=== PATIENT | female | born 1975 | race Two or more races ===

== ENCOUNTER 2021-12-13 13:23 | Emergency (ER) | payer MEDICAID ==
[~2021-12-13] VITALS: Ht 165.1 cm; Wt 71.9 kg
[2021-12-13] MEDS ORDERED: MECLIZINE HCL 12.5 MG TABLET. PO ONE (14:00)
[2021-12-13] MEDS ORDERED: IV NORMAL SALINE 1000ML BAG 1,000 ML IV ONE (14:00)
--- NOTE | 2021-12-13 14:22 | PHYS DOC ---
Past Medical History Past Surgical History: Other Additional Past Surgical Histo: abdominoplasty General Adult EDM: Chief Complaint: DIZZY/LIGHT HEADED HPI: HPI: Patient is a 46-year-old female who presents to the emergency department for intermittent lightheadedness and nausea for the last 6 months. Patient reports that the lightheadedness is worse when she is changing positions or moving quickly. She reports occasional left-sided sternal chest pain that has been going on for the last 6 months also. Chest pain is reproducible with palpation. Patient is concerned because she stated that she checked her blood pressure yesterday and it was 60/50. Patient has no primary care provider. Only medical history is migraine. She reports that this does not feel like her typical migraine symptoms. Patient denies vomiting, shortness of breath, fevers, cough, headache, abdominal pain. Review of Systems: Review of Systems: Constitutional: See HPI HENT: See HPI Respiratory: See HPI Cardiovascular: See HPI GI: See HPI Neurologic: See HPI Heart Score: C/O Chest Pain: Yes HEART Score for Chest Pain: HEART Score for Chest Pain Response (Comments) Value History Slighlty/Non-Suspicious 0 ECG Normal 0 Age >45 - < 65 1 Risk Factors No Risk Factors 0 Troponin < Normal Limit 0 Total 1 Risk Factors: Risk Factors: DM, Current or recent (<one month) smoker, HTN, HLP, family h istory of CAD, obesity. Risk Scores: Score 0 - 3: 2.5% MACE over next 6 weeks - Discharge Home Score 4 - 6: 20.3% MACE over next 6 weeks - Admit for Clinical Observation Score 7 - 10: 72.7% MACE over next 6 weeks - Early Invasive Strategies Current Medications: Current Medications Medications (Trade) Dose Ordered Sig/Joan Start Time Stop Time Status Last Admin Dose Admin Meclizine HCl (Antivert) 25 mg 1X ONCE 12/13/21 14:00 12/13/21 14:01 DC Sodium Chloride 1,000 ml @ 1,000 mls/hr 1X ONCE 12/13/21 14:00 12/13/21 14:59 Allergies: Allergies: Allergies Coded Allergies Type Severity Reaction Last Updated Verified No Known Drug Allergies 12/13/21 No Physical Exam: PE: Constitutional: Well developed, well nourished, no acute distress, non-toxic appearance. [] HENT: Normocephalic, atraumatic, bilateral external ears normal, oropharynx moist, no oral exudates, nose normal. [] Eyes: PERRL, 4 mm bilaterally, no nystagmus, EOMI, conjunctiva normal, no discharge. [] Neck: Normal range of motion, no tenderness, supple, no stridor. [] Cardiovascular:Heart rate regular rhythm, no murmur [] Lungs & Thorax: Bilateral breath sounds clear to auscultation [] Abdomen: Bowel sounds normal, soft, no tenderness, no masses, no pulsatile masses. [] Skin: Warm, dry, no erythema, no rash. [] Back: Normal range of motion Extremities: No tenderness, no cyanosis, no clubbing, ROM intact, no edema. [] Neurologic: Alert and oriented X 3, normal motor function, normal sensory function, no focal deficits noted, negative head impulse test, negative test of skew, no vertical nystagmus, no pronator drift, patient moving all 4 extremities equally, no limb ataxia, no slurred speech, patient reports dizziness with eye movements. [] Psychologic: Affect normal, judgement normal, mood normal. [] Current Patient Data: Labs: Laboratory Tests Test 12/13/21 13:43 POC Urine HCG, Qualitative Hcg negative (Negative) Vital Signs: Vital Signs Date Time Temp Pulse Resp B/P (MAP) Pulse Ox O2 Delivery O2 Flow Rate FiO2 12/13/21 13:30 97.6 93 18 150/95 (113) 99 Room Air 97.6 EKG: EKG: EKG performed by ER staff at 1337 shows sinus rhythm with a rate of 79, QTc is 423, no STEMI read by Dr. Mi at 1341 [] Radiology/Procedures: Radiology/Procedures: []PROCEDURE: CT HEAD WO CONTRAST EXAM: Head CT without contrast. HISTORY: Dizziness. TECHNIQUE: Computed tomographic images of the head were obtained without contrast. *One or more of the following individualized dose reduction techniques were utilized for this examination: 1. Automated exposure control. 2. Adjustment of the mA and/or kV according to patient size. 3. Use of iterative reconstruction technique. COMPARISON: None. FINDINGS: There is no acute or subacute extra-axial or intraparenchymal hemorrhage. There is no mass effect or midline shift. There is no hydrocephalus. The avila-white matter differentiation pattern is intact. There is decreased left maxillary sinus size due to hypoplasia or the sequela of chronic sinusitis. The mastoid air cells are clear. There is no suspicious calvarial lesion. IMPRESSION: No acute intracranial findings. Electronically signed by: Cecille Jarvis MD (12/13/2021 2:57 PM) [id number] DICTATED and SIGNED BY: CECILLE JAVRIS MD DATE: 12/13/21 [id number] 0 PROCEDURE: PORTABLE CHEST 1V EXAM: Chest, single view. HISTORY: Chest pain. Dizziness. COMPARISON: None. FINDINGS: A frontal view of the chest is obtained. There is no infiltrate, pleural effusion or pneumothorax. The heart is normal in size. IMPRESSION: No acute pulmonary finding. Electronically signed by: Cecille Jarvis MD (12/13/2021 2:22 PM) [id number] DICTATED and SIGNED BY: CECILLE JARVIS MD DATE: 12/13/21 [id number] 0 Course & Med Decision Making: Course & Med Decision Making Pertinent Labs and Imaging studies reviewed. (See chart for details) Patient presents to the emergency department with intermittent dizziness, nausea and chest pain for the last 6 months. Dizziness is worse with position changes and when she is moving quickly. Patient initially did not complain of any chest pain but then later reported left-sided sternal chest pain that has been intermittent for the last 6 months that is reproducible with palpation. Work-up in the ER consisted of blood work including troponin, EKG, CT imaging of head, chest x-ray. Patient has a negative hints exam. Patient will be treated with IV fluids to treat for orthostatic hypotension and Antivert. Blood work unremarkable, negative troponin, negative chest x-ray, urinalysis not show any infection cough, CT scan of head shows no acute findings. Following treatment in the emergency department, patient reports resolution of her dizziness. Patient will be discharged home with meclizine. She is advised to increase her fluids. Patient will be given referral information for primary care provider and ENT. Patient's vital signs are stable. I discussed with patient all findings and diagnostic testing as well as the need to follow-up with PCP for further evaluation and treatment or return to the ER if any new or worsening symptoms. Strict return precautions were also discussed at length. Patient voiced understanding and agreement with the plan. Patient is hemodynamically stable at the time of disposition. Dragon Disclaimer: Du Disclaimer: This electronic medical record was generated, in whole or in part, using a voice recognition dictation system. Departure Departure Impression: Primary Impression: Vertigo Disposition: HOME / SELF CARE / HOMELESS Condition: GOOD Referrals: JASPREET OREILLY MD Patient Instructions: Benign Positional Vertigo Additional Instructions: You were seen in the emergency department today for dizziness. Your work-up in the ER was unremarkable. It is possible that you are experiencing a drop in your blood pressure with position changes which may be causing your dizziness. Make sure that you are increasing your fluids and slowly changing positions. You are being discharged home with a medication called meclizine to treat vertigo symptoms. You are also being discharged home with referral information for an ENT and a primary care provider which you can follow-up. I would advise you to call them on Wednesday to set up a follow-up appointment. Return to the emergency department if you develop increased dizziness, syncope, intractable nausea or vomiting, chest pain, shortness of breath, weakness on 1 side, speech problems, confusion, poor coordination, high fevers refractory to treatment, falls or any new or worsening concerns. Scripts Meclizine Hcl (MECLIZINE HCL) 12.5 Mg Tablet 1 TAB PO TID for 10 Days, #30 TAB 0 Refills Prov: MADELIN BARAHONA APRN 12/13/21 MADELIN BARAHONA APRN Dec 13, 2021 14:22
--- NOTE | 2021-12-13 14:25 | RAD ---
EXAM: Chest, single view. HISTORY: Chest pain. Dizziness. COMPARISON: None. FINDINGS: A frontal view of the chest is obtained. There is no infiltrate, pleural effusion or pneumo thorax. The heart is normal in size. IMPRESSION: No acute pulmonary finding. Electronically signed by: Cecille Ruiz MD (12/13/2021 2:22 PM) [id number]
[2021-12-13 14:31] LABS: BASO % 1 % (0-3); EOS # 0.5 x10^3/uL (0.0-0.7); EOS % 6 % (0-3); HEMATOCRIT 41.7 % (36.0-47.0); HEMOGLOBIN 13.7 g/dL (12.0-15.5); LYMPH # 2.2 x10^3/uL (1.0-4.8); LYMPH % 28 % (24-48); MEAN CORPUSCULAR HEMOGLOBIN 30 pg (25-35); MEAN CORPUSCULAR HGB CONC 33 g/dL (31-37); MEAN CORPUSCULAR VOLUME 91 fL (79-100); MONO # 0.5 x10^3/uL (0.0-1.1); MONO % 7 % (0-9); NEUT # 4.6 x10^3/uL (1.8-7.7); NEUT % 59 % (31-73); PLATELET COUNT 212 x10^3/uL (140-400); RED BLOOD COUNT 4.59 x10^6/uL (3.50-5.40); RED CELL DISTRIBUTION WIDTH 13.5 % (11.5-14.5); WHITE BLOOD COUNT 7.7 x10^3/uL (4.0-11.0)
[2021-12-13 14:32] LABS: BILIRUBIN,URINE NEGATIVE (NEG); CLARITY,URINE CLEAR; COLOR,URINE YELLOW
[2021-12-13 14:33] LABS: NITRITE,URINE NEGATIVE (NEG); PH,URINE 5.5 (<5.0-8.0); PROTEIN,URINE NEGATIVE (NEG-TRACE); UROBILINOGEN,URINE 0.2 mg/dL (0.2 mg/dL)
[2021-12-13 14:37] LABS: CALCIUM 8.8 mg/dL (8.5-10.1); CREATININE 0.6 mg/dL (0.6-1.0); GFR 107.2; POTASSIUM 3.9 mmol/L (3.5-5.1)
[2021-12-13 14:38] LABS: BACTERIA,URINE 0 /HPF (0-FEW)
[2021-12-13 14:43] LABS: ALBUMIN 3.8 g/dL (3.4-5.0); ALBUMIN/GLOBULIN RATIO 1.1 (1.0-1.7); TOTAL BILIRUBIN 0.3 mg/dL (0.2-1.0); TOTAL PROTEIN 7.3 g/dL (6.4-8.2)
--- NOTE | 2021-12-13 14:59 | RAD ---
EXAM: Head CT without contrast. HISTORY: Dizziness. TECHNIQUE: Computed tomographic images of the head were obtained without contrast. *One or more of the following individualized dose reduction techniques were utilized for this examina tion: 1. Automated exposure control. 2. Adjustment of the mA and/or kV according to patient size. 3. Use of iterative reconstruction technique. COMPARISON: None. FINDINGS: There is no acute or subacute extra-axial or intraparenchymal hemorrhage. There is no mass effect or midline shift. There is no hydrocephalus. The avila-white matter differentiation pattern is intact. There is decreased left maxillary sinus size due to hypoplasia or the sequela of chronic sinusitis. T he mastoid air cells are clear. There is no suspicious calvarial lesion. IMPRESSION: No acute intracranial findings. Electronically signed by: Cecille Ruiz MD (12/13/2021 2:57 PM) [id number]
[2021-12-13] MEDS ORDERED: ONDANSETRON PF 4 MG/2 ML VIAL. IVP ONE (15:15)
[2021-12-13] MEDS ORDERED: MECL12.582 PO (15:27)
[2021-12-13 16:20] VITALS: BP 113/80
--- NOTE | 2021-12-13 21:12 | EKG ---
[facility] [address] [place] [id number] Test Date: 2021-12-13 Test Time: 13:37:47 Pat Name: CHETAN AYON Department: Room: Gender: F [employer] Manager: : 1975 Requested By: MADELIN BARAHONA Order Number: [id number] Reading MD: Measurements Intervals [place] Rate: 79 P: 39 WV: 118 QRS: 2 QRSD: 72 T: 6 QT: 368 QTc: 423 Interpretive Statements SINUS RHYTHM R-S TRANSITION ZONE IN V LEADS DISPLACED TO THE RIGHT OTHERWISE NORMAL ECG RI6.02 No previous ECG available for comparison
== END 2021-12-13 16:21 | disposition home or self-care (01) ==
LOC: ER 13:23
DX: R42 Dizziness and giddiness (principal); R11.0 Nausea; R07.2 Precordial pain
CPT/HCPCS: 36415; 70450; 71045; 80053; 81001; 81025; 84484; 85025; 93005; 96361; 96374; 99285; J2405; J7030; J8597